=== PATIENT | female | born 1995 | race Caucasian/White ===

== ENCOUNTER 2020-05-17 14:04 | Outpatient (REF) | payer MEDICARE, MEDICAID, SELFPAY ==
[2020-05-22 22:01] LABS: SARS-CoV-2 RNA Undetected (Undetected); SARS-CoV-2 Specimen Source Nasal
== END 2020-05-17 14:24 ==
LOC: NCHCN 14:04
PROVIDERS: Visit Provider Nurse Practitioner Family
DX: J02.9 Acute pharyngitis, unspecified (principal)
CPT/HCPCS: U0003

== ENCOUNTER 2020-07-26 10:27 | Outpatient (REF) | payer MEDICARE, MEDICAID, SELFPAY ==
--- NOTE | 2020-07-26 08:30 | PAPFT_PTH ---
PATIENT: Dennise Dyson LOC: [facility] U#:[id number] AGE/SX: 25/F ROOM: RE07/26/[address]: Rosalie Go : 1995 BED: DIS: 07/26/2020 SPEC #: [id number] RECD: 07/26/20 13:04 STATUS: ROBERT REAngelica #: [id number] [place]: 07/26/20 08:[address]: Rosalie Go DEPT: [facility] Cytology RECD BY: Khushbu Garcia Tissues: 1 - CX/ENDOCX FOR PAP SMEARS Procedures: PAP THIN PREP/[facility] Screening Comments: [id number] (CHLAMYDIA/GC)
[2020-07-26 13:50] LABS: ALT 20 U/L (14-59); AST 13 U/L (15-37); Calculated LDL 182 mg/dL (<100); Cholesterol 267 mg/dL (<200); HDL Cholesterol 60 mg/dL (40-60); Triglyceride 126 mg/dL (<150)
[2020-07-27 10:29] LABS: Syphilis Serology (RPR) Negative (Negative)
[2020-07-27 10:44] LABS: Hepatitis C Ab w Rflx HCV PCR Negative (Negative)
[2020-07-27 10:47] LABS: HIV-1/2 Ag & Ab Screen Negative (Negative)
[2020-07-27 15:46] LABS: Chlamydia Result Negative (Negative); GC Result Negative (Negative)
== END 2020-07-26 10:47 ==
LOC: NCHCN 10:27
PROVIDERS: PCP Nurse Practitioner Family; Visit Provider Nurse Practitioner Family
DX: E78.89 Other lipoprotein metabolism disorders (principal); Z11.3 Encounter for screening for infections with a predominantly sexual mode of transmission; Z11.4 Encounter for screening for human immunodeficiency virus [HIV]; Z11.59 Encounter for screening for other viral diseases; Z12.4 Encounter for screening for malignant neoplasm of cervix; Z01.419 Encounter for gynecological examination (general) (routine) without abnormal findings
CPT/HCPCS: 80061; 86803; 87389; 87491; 87591; 88142; 84450; 84460; 86592

== ENCOUNTER 2020-09-19 01:26 | Outpatient (CLI) | payer MEDICARE, MEDICAID, SELFPAY ==
--- NOTE | 2020-09-19 | DI.US_ITS ---
EXAM: US BREAST RT LIMITED CLINICAL HISTORY: RT BREAST TENDER PALPABLE 5 MM LUMP LOWER LAT ASPECT TECHNIQUE: Ultrasound right breast performed using standard protocol. COMPARISON: No exams were available for comparison FINDINGS: The area of palpable abnormality in the lower outer quadrant of the right breast was evaluated sonogr aphically. No solid or cystic masses, hypoechoic foci, areas of abnormal shadowing, or areas of skin thickening are seen on this examination. IMPRESSION: Unremarkable targeted right breast ultrasound. DATA REPOSITORY:
--- NOTE | 2020-09-19 | DI.US_ITS ---
EXAM: US BREAST LT LIMITED CLINICAL HISTORY: LT BREAST LUMPS TECHNIQUE: Ultrasound right breast performed using standard protocol. COMPARISON: No exams were available for comparison FINDINGS: Sonographic evaluation of the palpable abnormality in the upper inner quadrant of the left breast was performed. No solid or cystic masses, hypoechoic foci, areas of abnormal shadowing, or areas of ski n thickening is seen sonographically. IMPRESSION: Unremarkable targeted left breast ultrasound. DATA REPOSITORY:
== END 2020-09-19 01:46 ==
PROVIDERS: PCP Nurse Practitioner Family; Visit Provider Nurse Practitioner Family
DX: N63.13 Unspecified lump in the right breast, lower outer quadrant (principal); N63.22 Unspecified lump in the left breast, upper inner quadrant
CPT/HCPCS: 76642

== ENCOUNTER 2022-11-21 15:11 | Outpatient (REF) | payer MEDICARE, MEDICAID, SELFPAY ==
--- NOTE | 2022-11-21 14:00 | PAPFT_PTH ---
PATIENT: Dennise Dyson LOC: [facility] U#:[id number] AGE/SX: 27/F ROOM: RE11/21/[address]: Rosalie Go : 1995 BED: DIS: 11/21/2022 SPEC #: [id number] RECD: 11/22/22 15:42 STATUS: ROBERT REAngelica #: [id number] [place]: 11/21/22 14:[address]: Rosalie Go DEPT: [facility] Cytology RECD BY: Khushbu Garcia Tissues: 1 - CX/ENDOCX FOR PAP SMEARS Procedures: PAP THIN PREP/[facility] Screening Comments: [id number]
== END 2022-11-21 15:12 | disposition home or self-care (01) ==
LOC: NCHCN 15:11
PROVIDERS: PCP Nurse Practitioner Family; Visit Provider Nurse Practitioner Family
DX: Z12.4 Encounter for screening for malignant neoplasm of cervix (principal)
CPT/HCPCS: 88142

== ENCOUNTER 2023-03-10 15:06 | Outpatient (REF) | payer MEDICARE, MEDICAID, SELFPAY ==
[2023-03-10 16:35] LABS: ALT 41 U/L (14-59); AST 23 U/L (15-37); Albumin 3.7 g/dL (3.4-5.0); Alkaline Phosphatase 112 U/L (46-116); Anion Gap 13.2 mmol/L (3-11); BUN 15 mg/dL (7-18); Bilirubin, Total 0.3 mg/dL (0.2-1.0); CO2 22.8 mmol/L (21.0-32.0); CREATININE 0.7 mg/dL (0.55-1.02); Calcium 9.4 mg/dL (8.5-10.1); Calculated LDL 158 mg/dL (<100); Chloride 102 mmol/L (98-107); Cholesterol 255 mg/dL (<200); Estimated GFR 119.99 (mL/min/1.73m2); Glucose 76 mg/dL (74-106); HDL Cholesterol 68 mg/dL (40-60); Potassium 4.6 mmol/L (3.5-5.1); Sodium 138 mmol/L (136-145); Total Protein 7.4 g/dL (6.4-8.2); Triglyceride 147 mg/dL (<150)
== END 2023-03-10 15:07 | disposition home or self-care (01) ==
LOC: NCHCN 15:06
PROVIDERS: PCP Nurse Practitioner Family; Visit Provider Nurse Practitioner Family
DX: E78.00 Pure hypercholesterolemia, unspecified (principal); E66.9 Obesity, unspecified
CPT/HCPCS: 80053; 80061

== ENCOUNTER 2024-04-22 18:05 | Outpatient (REF) | payer MEDICARE, MEDICAID, SELFPAY ==
[2024-04-22 16:41] LABS: HCT 43.3 % (36.0-46.0); HGB 13.9 g/dL (11.2-15.7); MCHC 32.1 % (32.0-36.0); MCV 90 fL (80-95); MPV 9.3 fL (8.0-11.0); Platelet Count 474 10^3/uL (130-400); RDW 13.4 % (11.7-14.6); RDW-SD 44.6 fL
[2024-04-22 17:27] LABS: Hemoglobin A1C 4.9 % (<5.7)
[2024-04-22 17:54] LABS: ALT 27 U/L (14-59); AST 21 U/L (15-37); Albumin 3.8 g/dL (3.4-5.0); Alkaline Phosphatase 132 U/L (46-116); Anion Gap 13.1 mmol/L (3-11); BUN 16 mg/dL (7-18); CO2 24.9 mmol/L (21.0-32.0); CREATININE 0.7 mg/dL (0.55-1.02); Calcium 9.4 mg/dL (8.5-10.1); Calculated LDL 187 mg/dL (<100); Chloride 105 mmol/L (98-107); Cholesterol 288 mg/dL (<200); Estimated GFR 119.24 (mL/min/1.73m2); Glucose 74 mg/dL (74-106); HDL Cholesterol 76 mg/dL (40-60); Potassium 4.6 mmol/L (3.5-5.1); Sodium 143 mmol/L (136-145); Total Protein 7.8 g/dL (6.4-8.2); Triglyceride 126 mg/dL (<150)
== END 2024-04-22 18:06 | disposition home or self-care (01) ==
LOC: NCHCN 18:05
PROVIDERS: PCP Nurse Practitioner Family; Visit Provider Nurse Practitioner Family
DX: Z00.00 Encounter for general adult medical examination without abnormal findings (principal)
CPT/HCPCS: 80053; 80061; 85027; 83036